=== PATIENT | female | born 2000 ===

== ENCOUNTER 2024-07-12 22:21 | Observation (INO) | payer MEDICARE, MEDICAID ==
[~2024-07-12] VITALS: Ht 157.5 cm; Wt 59.0 kg
[2024-07-13 02:21] LABS: BASOPHILS ABSOLUTE AUTO 0.09 K/mm3 (0.00-0.23); BASOPHILS PERCENT AUTO 1 % (0-2); EOSINOPHILS ABSOLUTE AUTO 0.15 K/mm3 (0.00-0.68); EOSINOPHILS PERCENT AUTO 2 % (0-6); Hematocrit 41.4 % (33.0-51.0); Hemoglobin 14.5 g/dL (11.5-16.0); IMMATURE GRAN ABSOLUTE AUTO 0.03 K/mm3 (0.00-0.10); IMMATURE GRAN PERCENT AUTO 0 % (0-1); LYMPHOCYTES ABSOLUTE AUTO 3.16 K/mm3 (0.84-5.20); LYMPHOCYTES PERCENT AUTO 39 % (21-46); MONOCYTES ABSOLUTE AUTO 0.69 K/mm3 (0.16-1.47); MONOCYTES PERCENT AUTO 9 % (4-13); Mean Corpuscular HGB 32.1 pg (26.0-34.0); Mean Corpuscular Volume 92 fL (80-100); Mean Platelet Volume 12.5 fL (9.1-12.4); NEUTROPHILS ABSOLUTE AUTO 3.95 K/mm3 (1.96-9.15); NEUTROPHILS PERCENT AUTO 49 % (41-73); Platelet Count 233 K/mm3 (150-400); RDW Coefficient Variation 11.6 % (11.7-14.2); RDW Standard Deviation 39.1 fL (35.1-46.3); Red Blood Cell Count 4.52 M/mm3 (3.80-5.20); White Blood Cell Count 8.07 K/mm3 (4.00-11.30)
[2024-07-13 02:32] LABS: Ethanol (Alcohol), Blood, Med <3 mg/dL; Salicylate <1.7 mg/dL (2.8-20.0)
[2024-07-13 02:36] LABS: Source, Urine Clean Catch
[2024-07-13 02:39] LABS: Acetaminophen, Random <2.0 ug/mL (10.0-30.0); Alanine Aminotransfer (ALT/SGP 22 U/L (12-78); Albumin, Blood 4.1 g/dL (3.4-5.0); Albumin/Globulin Ratio 1.1 (0.8-1.8); Alk Phos 144 U/L (50-136); Anion Gap 10 mmol/L (3-11); Aspartate Aminotrans (AST/SGOT 23 U/L (12-37); Bilirubin, Total 0.2 mg/dL (0.1-1.0); Blood Urea Nitrogen 11 mg/dL (8-24); Bun/Creatinine Ratio 15.9 (12.0-20.0); CO2, Blood 25 mmol/L (21-32); Calcium, Blood 8.7 mg/dL (8.5-10.1); Chloride, Blood 102 mmol/L (98-108); Creatinine, Blood 0.69 mg/dL (0.40-1.00); Globulin, Blood 3.6 g/dL (2.2-4.0); Glomerular Filtration Rate 123 (60-); Glucose, Blood 327 mg/dL (70-99); Lithium 0.25 mmol/L (0.60-1.20); Sodium, Blood 133 mmol/L (136-145); Total Protein, Blood 7.7 g/dL (6.4-8.2)
[2024-07-13 02:49] LABS: Bilirubin, Urine Neg (Neg); Blood, Urine 2+ (Neg); Glucose Qualitative, Urine 4+ (Neg); Ketones, Urine Neg (Neg); Leukocyte Esterase, Urine Neg (Neg); Nitrite, Urine Neg (Neg); Protein, Urine Neg (Neg); Urobilinogen, Urine NORM (Normal)
[2024-07-13 03:05] LABS: U Amphetamine Screen Not Detected; U Barbituate Screen Not Detected; U Benzodiazapine Screen Not Detected; U Buprenorphine Screen Not Detected; U Cannabinoids Screen Not Detected; U Cocaine Screen Not Detected; U Methadone Screen Not Detected; U Methamphetamine Screen Not Detected; U Opiates Screen Not Detected; U Oxycodone Screen Not Detected; U Phencyclidine Screen Not Detected
[2024-07-13 03:14] LABS: Appearance, Urine Clear (Clear); Color, Urine Pale Yellow (P-Yellow)
[2024-07-13 03:15] LABS: Bacteria Mod /hpf; Red Blood Cells, Urine 0-2 /hpf (0-2); Squamous Epithelial Cells Many /hpf (Few); White Blood Cells, Urine 0-2 /hpf (0-5)
[2024-07-13] MEDS ORDERED: Insulin Regular 100 Unit/ML 1ML Dose SC ONE (07:10)
[2024-07-13] MEDS ORDERED: Insulin Human Lispro 100 Units/ML 3ML Syringe SC SCH (11:30)
[2024-07-13] MEDS ORDERED: HUMALOG100 UNIT/1 (14:07)
[2024-07-13] MEDS ORDERED: INSULANI SC (14:08)
[2024-07-13] MEDS ORDERED: BUPR150ER PO (14:08)
[2024-07-13] MEDS ORDERED: LITH300C PO (14:08)
[2024-07-13] MEDS ORDERED: TRAZ100 PO (14:09)
[2024-07-13] MEDS ORDERED: Hydroxyzine HCl50 MG (14:10)
[2024-07-13] MEDS ORDERED: ALTAVERA-28 TA1 EACH (14:11)
== END 2024-07-13 13:34 | disposition other institution (70) ==
LOC: ER 22:21 → EOR 22:22
PROVIDERS: ADMIT Student in an Organized Health Care Education/Training Program
DX: F31.9 Bipolar disorder, unspecified (principal); R45.851 Suicidal ideations; F43.10 Post-traumatic stress disorder, unspecified; F60.3 Borderline personality disorder; E10.65 Type 1 diabetes mellitus with hyperglycemia; Z88.2 Allergy status to sulfonamides; Z88.5 Allergy status to narcotic agent
CPT/HCPCS: 80053; 80178; 80320; 81001; 81025; 82947; 85025; 93005; 93010; 99285; A9270; G0378; G0480; J1815

== ENCOUNTER 2024-07-13 11:02 | Inpatient (IN) | payer MEDICARE, MEDICAID ==
[~2024-07-13] VITALS: Ht 157.5 cm; Wt 59.4 kg
[2024-07-13] MEDS ORDERED: HydrOXYzine Pamoate 50 MG Cap PO PRN (12:35)
[2024-07-13] MEDS ORDERED: Melatonin 3 MG Tab PO PRN (12:35)
[2024-07-13] MEDS ORDERED: Aluminum Hydroxide 320MG/5ML 473 ML PO PRN (12:40)
[2024-07-13] MEDS ORDERED: Zolpidem Tartrate 5 MG Tab PO PRN (12:40)
[2024-07-13] MEDS ORDERED: Ibuprofen 600 MG Tab PO PRN (12:40)
[2024-07-13] MEDS ORDERED: Calcium Carbonate 500 MG Tab Chew PO PRN (12:40)
[2024-07-13] MEDS ORDERED: OLANZapine ODT 10 MG Tab MM PRN (12:40)
[2024-07-13] MEDS ORDERED: TraZODone HCl 50 MG Tab PO PRN (12:40)
[2024-07-13] MEDS ORDERED: Acetaminophen 325 MG TABLET PO PRN (12:40)
[2024-07-13] MEDS ORDERED: Polyethylene Glycol 3350 17 gm PO PRN (12:45)
[2024-07-13] MEDS ORDERED: Lithium Carbonate 300 MG TabCR PO SCH (13:00)
[2024-07-13] MEDS ORDERED: Ondansetron 4 MG SoluTab MM PRN (13:10)
[2024-07-13 13:44] VITALS: BP 111/77
[2024-07-13] MEDS ORDERED: HUMALOG100 UNIT/1 (14:07)
[2024-07-13] MEDS ORDERED: LITH300C PO (14:08)
[2024-07-13] MEDS ORDERED: BUPR150ER PO (14:08)
[2024-07-13] MEDS ORDERED: INSULANI SC (14:08)
[2024-07-13] MEDS ORDERED: TRAZ100 PO (14:09)
[2024-07-13] MEDS ORDERED: Hydroxyzine HCl50 MG (14:10)
[2024-07-13] MEDS ORDERED: ALTAVERA-28 TA1 EACH (14:11)
[2024-07-13 14:41] VITALS: BP 111/77
--- NOTE | 2024-07-13 15:38 | NUR ---
ADMIT NOTE: PT ARRIVED TO [facility] FROM [facility] ER FOR SI WITH PLAN TO OD ON INSULIN. PT CALM AND COOPERATIVE, FLAT DEPRESSED AFFECT. PT TRAVELING FROM [place] WITH HER GRANDPARENTS TO VISIT FAMILY IN [place]. STATES THAT SHE WAS TRIGGERED BY CONVERSATION R/T HER MOTHER AND FATHER. SHE DIDN'T FEEL THAT SHE DIDN'T FEEL THAT SHE WOULD BE ABLE TO AVOID THE THOUGHTS OF SUICIDE IF SHE DIDN'T GET HELP. REPORTS HX OF ATTEMPTS X 2, ONE IN HIGHSCHOOL AND THE OTHER IN 2019 BY OD. REPORTS MULTIPLE STAYS IN THE PAST, STATES SHE HAS BEEN DIAGNOSED WITH BIPOLAR DISORDER. SHE LIVES ON HER OWN IN A HOME THAT SHE RENTS FROM HER GRANDPARENTS. STATES THAT SHE IS ON SSI FOR HER MENTAL HEALTH DIAGNOSIS AND DOES HAVE SNAP BENIFITS. STATES THAT SHE HAS TROUBLE WITH BINGE EATING AND THEN STARVING HERSELF. DENIES ANY RECENT WEIGHT LOSS OR GAIN. STATES THAT SHE HAS BEEN TRYING TO GET A DEXCOM BUT HAS BEEN RUNNING INTO ISSUES WITH GETTING IT AND TEST STRIPS COVERED.
[2024-07-13] MEDS ORDERED: Insulin Human Lispro 100 Units/ML 3ML Syringe SC SCH ×2 (16:30→17:30)
[2024-07-13] MEDS ORDERED: Insulin Human Lispro 100 Units/ML 3ML Syringe SC ONE (17:00)
[2024-07-13 21:54] VITALS: BP 100/68
[2024-07-14 08:10] VITALS: BP 114/75
[2024-07-14 08:25] VITALS: BP 122/78
[2024-07-14] MEDS ORDERED: Insulin Glargine-Yfgn 100 Unit/mL 3 ML SYR SC SCH (09:00)
[2024-07-14] MEDS ORDERED: Multivitamins 1 Tab PO SCH (09:00)
[2024-07-14] MEDS ORDERED: buPROPion HCL 150 MG TAB.SR.12H PO SCH (09:00)
--- NOTE | 2024-07-14 12:23 | NUR ---
DR CARTER NOTIFIED OF [facility] OF 354. HE REPORTS HE WILL INCREASE LONG ACTING FOR AM, CONTINUE MED SLIDING SCALE FOR NOW.
--- NOTE | 2024-07-14 17:02 | NUR ---
SHIFT SUMMARY PT AA&OX4. SHE IS PLEASANT AND COOPERATIVE WITH CARE. EYE CONTACT IS LIMITED, VOICE IS SOFT. PT IS ABLE TO ANSWER ASSESSMENT QUESTIONS APPROPRIATELY. SHE REPORTS HER MOOD ANXIOUS BUT NOT OVERWHELMING AND DOES NOT REQUIRE PRN MEDICATION. AFFECT IS CONSTRICTED SHE DID START TO OPEN UP AND JOINED [facility] FOR GROUPS, MEALS AND MOVIE. SHE REPORTS SI WITHOUT A PLAN AT THIS TIME. SHE REPORTS THAT SHE FEELS SAFE HERE. PLAN IS TO TITRATE LITHIUM. DM POORLY CONTROLLED AT THIS TIME. PLAN TO INCREASE LONG ACTING INSULIN FROM 18-20 UNITS TOMORROW AND CONTINUE MED SLIDING SCALE. HOSPITALIST WILL CONTINUE TO FOLLOW. PT EDUCATED ON MEDICATION MANAGEMENT AND DM DISEASE PROCESS. SHE VERBALIZED UNDERSTANDING AND IS AGREEABLE TO PLAN. PT STATES SHE IS [employer] INTOLERANT DIETARY NOTIFIED. PT DENIES ANY CURRENT NEEDS. SPOKE WITH GRANDMOTHER WHO REPORTS THEY WILL BE ABLE PICK PT UP MONDAY WHEN HOLD IS UP ON THEIR BACK FROM [place]. WILL CONTINUE POC
[2024-07-14 22:07] VITALS: BP 105/77
--- NOTE | 2024-07-15 03:49 | NUR ---
SHIFT SUMMARY: PATIENT IS A/OX4, ABLE TO VOICE NEEDS. SHE IS COMPLIANT WITH HER POC. SHE DID WATCH A MOVIE, ENGAGE WITH OTHERS AND HAVE GROUP SNACK. SHE CURRENTLY DENIES SI, VH AND AH. SHE GOES TO BED WITHOUT ENCOURAGEMENT. SHE DOES SLEEP THROUGH THE NIGHT. NO NOTED BEHAVIORS OR ISSUES. WE WILL CONTINUE TO MONITOR EVERY 15 MIN FOR SAFETY AND COMFORT.
[2024-07-15 08:05] VITALS: BP 114/91
[2024-07-15] MEDS ORDERED: Insulin Glargine-Yfgn 100 Unit/mL 3 ML SYR SC SCH (09:00)
--- NOTE | 2024-07-15 18:06 | NUR ---
SHIFT SUMMARY: PT HAS BEEN COOPERATIVE WITH CARE, COMPLIANT WITH MEDICATION AND POC TESTING. ALERT AND ORIENTED TO PERSON, PLACE, TIME AND SITUATION. PT STATES SHE IS NOT HAVING CURRENT SI, THOUGH RECALLS THOSE FEELINGS EASILY AND DISCUSSED FRUSTRATION WITH FAMILY AND LIVING SITUATION. SHE STATES SHE HAS A FISHER CRAB WITH HER LOCAL MENTAL HEALTH AGENCY WELL A THERAPIST. SHE STATES THEY ARE WORKING AT FINDING DIFFERENT HOUSING. PT STATES SHE HAS GOALS OF GOING BACK TO SCHOOL AND BECOMING A ETL PROGRAMMER. PT PARTICIPATED IN GROUPS AND ENGAGED WITH [facility] ACTIVITIES.
[2024-07-15 20:00] VITALS: BP 120/84
[2024-07-15 22:14] LABS: Lithium 0.51 mmol/L (0.60-1.20)
--- NOTE | 2024-07-16 05:11 | NUR ---
PATIENT SUMMARY: ASSUMED CARE FROM PRIOR SHIFT. PATIENT IS A/OX4, ABLE TO VOICE NEEDS AND HAVE MEANINGFUL CONVERSATION. SHE DID VOICE CONCERNS OF "FEELING CATY" IT RELATES TO HER DM. RN TOOK HER BS = 245. LENGTHY DISCUSSION REGARDING DIABETES EDUCATION. SHE CURRENTLY DENIES SI, VH AND AH. SHE IS SOCIALIZING WITH OTHER PATIENTS AND STAFF APPROPRIATELY. SHE GOES TO BED WITHOUT ENCOURAGEMENT. NO NOTED BEHAVIORS OR ISSUES. WE WILL CONTINUE TO MONITOR FOR SAFETY AND COMFORT.
[2024-07-16 06:52] LABS: Cholesterol 171 mg/dL (50-200); HDL Cholesterol 85 mg/dL (>39); LDL/HDL RATIO 0.8; Low Density Lipoprotein Chol 68 mg/dL (0-110); Triglycerides 92 mg/dL (30-140); Very Low Density Lipoprot Chol 18 mg/dL (6-28)
[2024-07-16 08:19] VITALS: BP 118/84
[2024-07-16] MEDS ORDERED: Insulin Glargine-Yfgn 100 Unit/mL 3 ML SYR SC SCH (09:00)
--- NOTE | 2024-07-16 17:39 | NUR ---
SHIFT NOTE PT STARTED THE MORNING PRIOR TO BREAKFAST BLUNT AND DEPRESSED LIKE. AFTER AM MEAL SHE WAS INTERACTING WELL, PLEASANT, AND NOT BLUNTED. SHE HAD A CHANGE IN HER INSULIN PER HOSPITALIST, SHE WAS COMPLIANT WITH ALL MEDICATIONS. PT HAD A CONSULT WITH DIRECTOR OF INFECTION CONTROL, PLEASE SEE HER NOTE. PT ATTENDED GROUPS AND INTERACTED WITH PEERS WELL.
[2024-07-16 20:00] VITALS: BP 113/78
[2024-07-16] MEDS ORDERED: Insulin Human Lispro 100 Units/ML 3ML Syringe SC SCH (21:00)
--- NOTE | 2024-07-16 21:46 | NUR ---
BLOOD SUGAR HS CBG 315, HYACINTH INFORMATION TECHNOLOGY SECURITY ANALYST WITH HOSPITALIST NOTIFIED AND COVERAGE GIVEN PER MEDIUM SLIDING SCALE AND COVERAGE CHANGED TO AC AND HS.
[2024-07-16 23:40] VITALS: BP 118/88
--- NOTE | 2024-07-17 04:11 | NUR ---
SHIFT SUMMARY PATIENT UP IN [facility] WATCHING TV. DENIES HI, OR AVH. VERBALIZED SI CONTINUES BUT MORE "IN THE BACKGROUND" DENIES PLAN. CBG BEFORE SNACK 315 COVERED WITH SLIDING SCALE PER ORDER. AT 2330 PATIENT AWAKE AND C/O FEELING "HOT AND JUST NOT RIGHT" VSS, CBG 130 2ND SNACK OF PEANUT BUTTER GIVEN, WHILE EATING PATIENT VERBALIZED THAT SHE FEELS LIKE SHE IS OVER THINKING THINGS. SHE IS WORRIED ABOUT CATCHING "SOMETHING" WHILE HERE. SHE VERBALIZED THAT SHE HAS URGE TO WASH HER HANDS MORE AND IS WORRIED ABOUT SHARING TOILET. PATIENT CONTINUES TO REF SLEEP AID OR HYDROXYZINE FOR ANXIETY. VERBALIZED THAT SHE WAS FEELING BETTER AFTER TALKING. PATIENT NOW APPEARS TO BE SLEEPING RESP EVEN AND UNLABORED. CONTINUE TO MONITOR Q15MIN
[2024-07-17 08:01] VITALS: BP 112/83
--- NOTE | 2024-07-17 08:05 | NUR ---
SHIFT ASSESSMENT: PT WAS RESTING IN BED AT THE TIME OF THE INTERVIEW. SHE REPORTED, "I HAVE OCCASSIONAL THOUGHTS OF SI BUT NOTHING BIG, I'M NOT ACTING ON THEM. I HAVE A LITTLE ANXIETY...I ONLY HAVE A COUPLE MORE DAYS TILL I LEAVE." HER AFFECT WAS EUTHYMIC. SHE DENIED AND THOUGHTS OF HI, AVH OR PAIN. PT WAS COOPERATIVE AND PLEASANT. HER FASTING BLOOD SUGAR WAS 118 SO NO HUMALOG INSULIN COVERAGE NEEDED.
[2024-07-17] MEDS ORDERED: Lithium Carbonate 450 MG TabCR PO SCH (09:00)
--- NOTE | 2024-07-17 14:19 | NUR ---
PT'S BLOOD SUGAR AT 11:30 WAS 286 AND WAS COVERED WITH 6U OF HUMALOG.
[2024-07-17 19:21] VITALS: BP 112/76
--- NOTE | 2024-07-18 04:29 | NUR ---
SHIFT SUMMARY PATIENT UP IN [place] WATCHING TV AND TALKING WITH PEERS. VERBALIZED THAT SHE CONTINUES TO HAVE "DARK THOUGHTS" BUT DENIES SI, HI OR AVH. PATIENT AGREES TO ASK STAFF FOR ASSISTANCE IF HAVING URGE TO HARM SELF OR IF SI THOUGHTS RETURN. REF ANY PRN MEDICATIONS AT THIS TIME. PATIENT APPEARS TO BE SLEEPING WELL T/O NIGHT RESP EVEN AND UNLABORED. CONTINUE TO MONITOR Q15MIN
[2024-07-18 08:08] VITALS: BP 115/76
--- NOTE | 2024-07-18 14:56 | NUR ---
SHIFT ASSESSMENT: WHEN ASKED ABOUT SI SHE REPLIED, "NOT ONE!" SHE DENIED HI AND AVH. SHE HAS BEEN EXPERIENCING "A LITTLE ANXIETY." SHE REPORTED THAT SHE TOOK ONE BIRTHCONTROL PILL BEFORE SHE WAS ADMITTED AND IS PERIODICALLY HAVING SOME PERIOD TYPE CRAMPING. PT DISCRIBED HER MOOD , "GOOD." PT HAS BEEN IN GROUPS AND ACTIVE IN THE [facility] TODAY. SHE IS PLEASANT AND COOPERATIVE.
[2024-07-18 19:35] VITALS: BP 108/70
--- NOTE | 2024-07-19 06:09 | NUR ---
SHIFT SUMMARY NO ACUTE EVENTS THIS SHIFT. PT DENIES SI, HI, AVTH. EXPRESSES FRUSTRATION AT DELAYED DISCHARGE ON MONDAY. PT ALSO TALKED ABOUT HER BELIEVING THAT A LOT OF HER SYMPTOMS WERE A RESULT OF ENVIRONMENTAL TRIGGERS AND THAT SHE IS GOING TO TRY AND MOVE OUT OF HER GRANDPARENTS HOUSE THEY ARE A MAJOR SOURCE OF DISTRESS D/T "NOT BELIEVING IN MENTAL ILLNESS" AND ATTRIBUTES HER MENTAL ILLNESSES TO "LAZINESS AND BEING DRAMATIC". EDUCATION GIVEN ON IMPORTANCE OF SETTING BOUNDARIES AND ENCOURAGED TO ADVOCATE FOR HERSELF AND PURSUE A DIFFERENT THERAPIST HER CURRENT ONE IS ONLINE AND DOES NOT WANT TO PURSUE CBT OR DBT W/ HER. PT PLAYED FELIPA W/ THIS RN AND HELENA BEFORE GOING TO BED. PT ALSO WENT TO SNACKTIME.
[2024-07-19 08:04] VITALS: BP 122/92
--- NOTE | 2024-07-19 09:05 | NUR ---
IMPORTANT DISCHARGE INSTRUCTIONS PATIENT'S GRANDPARENTS ARE COMING TO GET HER ON 07/20/24 AT 5PM. GRANDMOTHER = FELA PATIENT HAS PCP FOLLOW UP/[place] ON 08/22/24 AT 1PM AT [facility] [address] ESCOBAR, PLEASE SEND DISCHARGE SUMMARY TO FAX = . PHONE AT . PATIENT HAS DIETARY AND LAUNDRY OPERATOR FINISHING APPOINTMENT ON 08/13/24 AT 11AM. [facility] PATIENT HAS BEEN ENROLLED INTO NURSE CASE MANAGMENT FOR HEALTH [facility]ARE O[facility]IGHT PHARMACY: [facility] HOUSEING RESOURSES: ASSISTED LIVING AND HOW TO ENROLL IN HUD HOUSING INCLUDED IN DISCHARGE PACKET.
[2024-07-19] MEDS ORDERED: Lithium Carbon450 MG PO (12:32)
--- NOTE | 2024-07-19 17:35 | NUR ---
SHIFT SUMMARY PT A/O X4; PLEASANT AND COOPERATIVE WITH CARE. SHE DENIES SI, HI, AND AVTH. SHE ALSO DENIES ANY BINGING/PURGING SINCE BEING IN THE [place]. SHE ADHERES TO THE PLAN OF CARE AND ATTENDS ALL GROUPS/MEALS. PT TO DISCHARGE HOME TOMORROW EVENING. SHE IS TO BE PICKED BY HER GRANDPARENTS TOMORROW AND IS GOING BACK TO [place]. RESOURCES FOR HUD HOUSING IN HER CHART. MEDICATIONS TO BE CALLED TO [facility] IN [facility]. PT REPORTED THAT SHE HAS BEEN TRYING TO AVOID SUGARY FOODS AT SNACK AND HAS NOT NEEDED ANY INSULIN COVERAGE THIS SHIFT. SHE CONTINUES TO BE ROUNDED ON FOR SAFETY AND WELLNESS.
[2024-07-19 20:00] VITALS: BP 119/86
--- NOTE | 2024-07-20 05:59 | NUR ---
SHIFT SUMMARY Pt is A&O, calm, cooperative, eye contact is appropriate. Pt describes her mood as "good, calm," affect is euthymic. Pt denies SI, HI, hallucinations and current pain. Pt was active on the milieu throughout the evening, watching TV and playing cards with peers. Pt stated that she is somewhat anxious about d/c tomorrow. Pt requested PRN Tums and acetaminophen to control period before she goes to bed. HS CBG was 235, no coverage per sliding scale. Staff continues to monitor q15m for safety and wellness.
[2024-07-20 08:40] VITALS: BP 131/100
--- NOTE | 2024-07-20 16:50 | NUR ---
SHIFT SUMMARY PT A/O X4; PLEASANT AND COOPERATIVE WITH CARE. SHE DENIES SI, HI, AND HALLUCINATIONS. SHE IS TO DC HOME WITH HER GRANDPARENTS THIS EVENING. PRESCRIPTIONS SENT TO [facility] AND CONFIRMED THAT THEY ARE ABLE TO BE FILLED. DISCHARGE PAPER WORK GONE OVER WITH PATIENT. PT EXPRESSED SOME CONFUSION OVER DISCHARGE FOLLOW UP APPOINTMENTS. PT SAYS THAT SHE DOES NOT NORMALLY GO TO [facility]. ENCOURAGED PT TO GO TO FOLLOW UP APPOINTMENTS SCHEDULED. PT EXPRESSED SOME UNDERSTANDING. SHE HAS ATTENDED ALL MEALS AND HAS BEEN ACTIVE ON THE [employer].
--- NOTE | 2024-07-20 17:41 | NUR ---
DISCHARGE PT'S BELONGINGS RETURNED AND SHE WAS PICKED UP BY HER GRANDPARENTS. GRANDMOTHER VERBALIZED THAT THEY ARE PICKING UP HER PRESCRIPTIONS AFTER LEAVING THE [facility]. PT DECLINED INSULIN AND SAID THAT SHE WOULD INJECT HERSELF BEFORE HAVING DINNER TONIGHT. PT DID NOT EAT AT THE [facility]. PT LEFT [facility] AT 1742.
== END 2024-07-20 17:42 | disposition home or self-care (01) | DRG 885 ==
LOC: BHU 11:02
PROVIDERS: ADMIT Student in an Organized Health Care Education/Training Program
DX: F31.9 Bipolar disorder, unspecified (principal); R45.851 Suicidal ideations; F43.12 Post-traumatic stress disorder, chronic; E10.649 Type 1 diabetes mellitus with hypoglycemia without coma; F60.3 Borderline personality disorder; Z56.0 Unemployment, unspecified; Z88.5 Allergy status to narcotic agent; Z88.2 Allergy status to sulfonamides; Z79.4 Long term (current) use of insulin; Z79.899 Other long term (current) drug therapy
CPT/HCPCS: 36415; 80061; 80178; 82947; 83036; 84443; A9270; J1815